=== PATIENT | female | born 1950 | race Caucasian/White ===

== ENCOUNTER 2022-09-13 16:57 | Emergency (ER) | payer MEDICARE, SELFPAY ==
[2022-09-13 16:59] VITALS: BP 149/68; PULSE 77; RESP 20; TEMP 36.4; O2SAT 96
--- NOTE | 2022-09-13 20:06 | ED.BACK ---
HPI - Back Pain/Injury General Chief Complaint: Extremity Problem,Nontraumatic Stated Complaint: hip pain right Time Seen by Provider: 09/13/22 19:46 Source: patient Mode of arrival: ambulatory Limitations: no limitations History of Present Illness HPI Narrative: 72-year-old female with history of lumbar surgery presents today with complaints of right lower back pain radiating down the right leg that started yesterday. Patient has seen chiropractor and an RETAIL ASSISTANT STORE MANAGER yesterday for these concerns. RETAIL ASSISTANT STORE MANAGER sent her home with Flexeril and ibuprofen 600 mg. Patient has only taken 2 doses since yesterday. Patient states she has done a lot of sitting and laying around due to the pain today. Movement aggravates the pain and patient has really found no alleviating factors. Patient denies any urinary incontinence, saddle paresthesia, bowel incontinence, leg weakness, fevers. Related Data Allergies Allergy/AdvReac Type Severity Reaction Status Date / Time acetaminophen Allergy Unknown Verified 09/13/22 19:44 [From Darvocet-N] propoxyphene Allergy Unknown Verified 09/13/22 19:44 [From Darvocet-N] ALL MYCINS Allergy Swelling Uncoded 09/13/22 19:44 Review of Systems Review of Systems: CONSTITUTIONAL: Denies fever, chills, or sweats. EYES: Denies visual changes, redness, or discharge. CARDIOVASCULAR: Denies chest pain, palpitations, or edema. RESPIRATORY: Denies cough or dyspnea. GENITOURINARY: Denies dysuria or hematuria. SKIN: Denies rash or itching. MUSCULOSKELETAL: Low back pain radiating down right leg to foot. Denies joint pain, or myalgia. NEUROLOGIC: Denies headache, numbness, dizziness, or weakness. PSYCHIATRIC: Denies anxiety or depression. [facility] Surgical History Surgical History (Updated 09/13/22 @ 20:27 by Debo Zhang APRN) History of lumbar surgery Exam Narrative: GENERAL: Well-appearing, well-nourished, and in no acute distress. HEAD: Normocephalic, atraumatic. EYES: PERRLA and EOMI. CHEST: Clear to auscultation. No respiratory distress. No wheezes rales or rhonchi HEART: Regular rate and rhythm. No murmur heard. Normal peripheral pulses. ABDOMEN: Soft, nontender, nondistended, normal active bowel sounds. BACK: No spinal process tenderness. Tenderness to right buttock with palpation. Patient unable to tolerate laying flat unable to do straight leg raise. EXTREMITIES: Normal range of motion. No edema. SKIN: Warm, dry, no rash. NEURO: No focal deficits. Alert and oriented x3. PSYCH: Normal mood and affect. Course Vital Signs Vital signs: Vital Signs Temperature 97.6 F 09/13/22 16:59 Pulse Rate 77 09/13/22 16:59 Respiratory Rate 20 09/13/22 16:59 Blood Pressure 149/68 H 09/13/22 16:59 Pulse Oximetry 96 09/13/22 16:59 Oxygen Delivery Room Air 09/13/22 16:59 Temperature 97.6 F 09/13/22 16:59 Pulse Rate 77 09/13/22 16:59 Respiratory Rate 20 09/13/22 16:59 Blood Pressure 149/68 H 09/13/22 16:59 Pulse Oximetry 96 09/13/22 16:59 Oxygen Delivery Room Air 09/13/22 16:59 MDM - Back Pain/Injury MDM Narrative Medical decision making narrative: Patient's pain is positional in nature and localized to back without signs of cord compression or cauda equina based on neurological exam, skeletal exam and history. No fever or other significant factors to suggest osteomyelitis or spinal epidural abscess. No symptoms or signs to suggest pain is referred from abdominal or / cardiopulmonary sources. No pulsatile masses noted on exam. Patient ambulates with steady gait and is stable for outpatient management given case findings. Differential Diagnosis Differential diagnosis: Likely lumbar radiculopathy, sciatica and strain of lumbar region Discharge Plan Discharge Clinical Impression: Lumbar radiculopathy Patient Disposition: Home, Self-Care Condition: Stable Instructions: Antibiotic Form, Lumbar Radiculopathy (ED), Lower Back Exercises (ED) Additional Inst
[2022-09-13] MEDS: HYDROcodone/acetaminophen (*CRX) 5-325 MG TABLET 1 TAB PO (20:27)
[2022-09-13 20:41] VITALS: BP 147/73; PULSE 86; RESP 16; O2SAT 96
[2022-09-13] MEDS: LIDOCAINE 5% PATCH 1 PATCH TRANSDERM (20:42)
== END 2022-09-13 20:52 | disposition home or self-care (01) ==
PROVIDERS: Emergency Provider Nurse Practitioner Family; PCP Family Medicine
DX: M54.16 Radiculopathy, lumbar region (principal)
CPT/HCPCS: 99283; A9270

== ENCOUNTER → 2022-10-23 11:17 | Outpatient (CLI) | payer MEDICARE, SELFPAY ==
--- NOTE | ~2022-10-23 | MR_ITS ---
EXAMINATION: MR lumbar spine wo con DATE: 10/23/2022 11:49 INDICATION: Lumbar radiculopathy TECHNIQUE: Magnetic resonance imaging (MRI) of the lumbar spine was performed without intravenous con trast. Sequences included sagittal T2-weighted FSE, sagittal T2-weighted FS FSE, sagittal T1-weighted FSE, and axial T2-weighted FSE. COMPARISON: None FINDINGS: 8 degree levocurvature centered at L1-L2. 2 mm retrolisthesis L4 on L5 and one-2 mm retrolisthesis L5 on S1. Vertebral body heights are normal. T1 hyperintense hemangioma at L2. Marrow signal is otherwi se normal. Mild right-sided disc height loss at L1-L2. Additional more diffuse mild disc height loss at L4-L5 with annular fissure. The conus medullaris terminates at T12. There is normal signal in the caudal spinal cord. Paravertebral soft tissues are unremarkable. The following disc levels are speci fically discussed: T11-T12: The disc does not extend beyond the endplate margin. There is mild right and moderate left f acet joint osteoarthritis. There is no neural foraminal stenosis. There is no central canal stenosis. T12-L1: The disc does not extend beyond the endplate margin. There is mild left and moderate right fa cet joint osteoarthritis. There is mild right neural foraminal stenosis. There is no central canal st enosis. L1-L2: Disc is mildly bulging. There is mild right and moderate left facet joint osteoarthritis. Ther e is mild bilateral neural foraminal stenosis. There is mild central canal stenosis. L2-L3: Disc protrusions at the bilateral foraminal zones, mild on the left and minimal on the right. There is hypertrophy of the ligamentum flavum. There is mild to moderate right and moderate left fac et joint osteoarthritis. There is mild bilateral, left greater than right neural foraminal stenosis. There is minimal central canal stenosis. L3-L4: Mild bilateral foraminal zone disc protrusions. There is hypertrophy of the ligamentum flavum. There is moderate to severe right and mild left facet joint osteoarthritis. There is mild bilateral neural foraminal stenosis. There is mild central canal stenosis. L4-L5: Disc is mildly bulging with superimposed annular fissure and small central disc protrusion. Th ere is hypertrophy of the ligamentum flavum. There is moderate bilateral facet joint osteoarthritis. There is mild to moderate bilateral neural foraminal stenosis. There is mild to moderate central david l stenosis along with narrowing of the left and right lateral recesses. L5-S1: Disc is minimally bulging with superimposed right foraminal zone disc protrusion There is mild bilateral facet joint osteoarthritis. There is mild bilateral, right greater than left neural forami nal stenosis. The thecal sac terminates at the level of the disc space where the fat surrounding the nerve roots at this level. No stenosis of the surrounding central canal. IMPRESSION: 1. A degree upper lumbar levocurvature with mild lumbar spondylosis. Reviewed, dictated and finalized at location B. CHECKER
== END ==
PROVIDERS: PCP Family Medicine
DX: M47.26 Other spondylosis with radiculopathy, lumbar region (principal)
CPT/HCPCS: 72148

== ENCOUNTER 2023-01-15 14:00 | Outpatient (CLI) | payer MEDICARE, SELFPAY ==
--- NOTE | ~2023-01-15 | CT_ITS ---
EXAMINATION: CT diagnostic chest wo con DATE: 01/15/2023 15:41 INDICATION: Left lung nodules seen on outside examination. TECHNIQUE: Computed tomography (CT) of the chest was performed without intravenous contrast. The dose -length product was 112.12 mGy-cm. Automated exposure control and iterative reconstruction technique were employed. COMPARISON: None FINDINGS: No significant pleural or pericardial effusion. Heart size is normal. There is atherosclero sis of the aorta and coronary arteries. No thoracic lymphadenopathy. There is a 3 mm left upper lobe nodule, image 38. No endobronchial lesions. There is a 4 mm right upper lobe nodule at the pleural zhang rface posteriorly, image 22. There is a 3 mm fissural nodule on the right, image 58. There are densel y calcified nodules in the left lower lobe, consistent with chronic granulomatous disease. There is l ower lobe atelectasis/scarring. No pneumothorax. IMPRESSION: 1. Bilateral pulmonary nodules measuring 4 mm or less, likely benign. Follow-up low dose CT chest in 12 months recommended. Reviewed, dictated and finalized at location A.
== END 2023-01-15 14:01 | disposition home or self-care (01) ==
LOC: ANHIMG 14:01
PROVIDERS: PCP Family Medicine; Visit Provider Nurse Practitioner Family
DX: R91.8 Other nonspecific abnormal finding of lung field (principal)
CPT/HCPCS: 71250

== ENCOUNTER → 2023-03-12 09:19 | Outpatient (CLI) | payer MEDICARE, SELFPAY ==
--- NOTE | ~2023-03-12 | XR_ITS ---
EXAMINATION: XR knee LT 3V DATE: 03/12/2023 10:18 INDICATION: Left knee pain TECHNIQUE: Three views of the left knee were obtained. COMPARISON: None. FINDINGS: Alignment is normal. No fracture or osteochondral lesion. There is mild tricompartmental os teoarthritis characterized by tiny marginal osteophytes. No joint effusion/synovitis. Soft tissues a re unremarkable. IMPRESSION: 1. No acute osseous abnormality. Reviewed, dictated and finalized at location A.
== END ==
PROVIDERS: PCP Pain Medicine Pain Medicine; Visit Provider Pain Medicine Pain Medicine
DX: M25.562 Pain in left knee (principal)
CPT/HCPCS: 73562

== ENCOUNTER 2023-10-30 08:35 | Outpatient (CLI) | payer MEDICARE, SELFPAY ==
--- NOTE | 2023-11-12 12:48 | WPDHOMESLEEP ---
Sleep Study - Home Unattended Date of Study: 10/30/23 Ordering Provider: Naren Borja MD Interpreting Provider: Katie Onofre DO Home Sleep Study Type: Watch PAT Height: 1.63 m Weight: 77.111 kg Body Mass Index: 29.2 Neck Circumference (inches): 13.5 Crowder: 6 Reason for Sleep Study Difficulty sleeping Sleep History The patient is a 73-year-old female with anxiety, arthritis, depression, diabetes and history of tobacco use that had a sleep study her primary care for evaluation of sleep apnea. The patient's sleep intake forms were not available for review. [facility] Past Medical History Medical History Acanthosis nigricans due to type 2 diabetes mellitus Anemia Anxiety Arthritis BMI 29.0-29.9,adult BMI 31.0-31.9,adult BMI greater than 30 Depression Overweight with body mass index (BMI) of 28 to 28.9 in adult Sleep apnea, unspecified Thyroid disorder Surgical History Surgical History History of lumbar surgery History of tonsillectomy and adenoidectomy Hx laparoscopic cholecystectomy Family History Family History Father Acute myocardial infarction AAA (abdominal aortic aneurysm) Amputation of leg Mother Hypertension Cerebrovascular accident Sibling Brain bleed Sibling Amputation of leg Deep vein blood clot of left lower extremity Diabetes mellitus Hypertension Social History Social History Years smoked: 30 Smoking status: Former smoker Tobacco type: cigarettes Second hand tobacco smoke exposure: Yes Alcohol intake: current Substance use: never Substance use type: does not use Lack of Transportation: No Lack of Food: Never True Current Housing: I Have Housing Concerned About Future Housing: No Difficulty Paying Gas/Electric Bills: No Difficulty Paying for Meds: No Currently Unemployed: No Education: Associate Degree Difficulty w/ Childcare or Family Care: No Living arrangements: alone Occupation/Education: retired 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 [employer] Gender identity (if verbalized by the patient): Female Medications Home Medications Medication Instructions Recorded Confirmed Type atorvastatin 20 mg tablet 20 mg PO QHS 01/10/23 01/25/24 History citalopram 40 mg tablet 20 mg PO DAILY 10/10/22 10/25/23 History gabapentin 300 mg capsule 300 mg PO QHS 10/10/22 10/25/23 History levothyroxine 100 mcg capsule 100 mcg PO DAILY 10/10/22 10/25/23 History pioglitazone 30 mg tablet 30 mg PO DAILY #90 tabs 07/30/23 10/25/23 Rx metformin 1,000 mg tablet 1,000 mg PO BID diabetes #180 tabs 10/09/23 10/25/23 Rx clobetasol 0.05 % topical ointment See Rx Instructions .Route 10/25/23 10/25/23 Rx .COMPLEX 3 weeks #30 grams vibegron 75 mg tablet (Gemtesa) 75 mg PO DAILY 10/25/23 10/25/23 History glimepiride 4 mg tablet 4 mg PO QAM #90 tabs 11/03/23 Rx Sleep Procedure The sleep study was completed using ConvertMediaT a technically adequate device with seven channels: peripheral arterial tone, actigraphy, body position, snore, respiratory movement, pulse oximetry, sleep staging, and heart rate. Prior to using the device, the patient received verbal and written instructions for its application and was provided with the help desk phone number for additional telephonic instruction with 24-hour availability of qualified personnel to answer questions. The study was scored using [facility] guidelines. Sleep Architecture The patient had a total recording time of 7 hours 55 minutes and a total sleep time of 7 hours 9 minutes. The sleep efficiency was 90.39%. The sleep latency was 6 minutes and the REM latency was 78 minutes. The patient had 7 awakenings. The patient spent 76.83% of total sleep ti
[2023-11-12 12:49] VITALS: BMI 29.2
== END 2023-10-31 07:30 | disposition home or self-care (01) ==
LOC: ANHCSM 08:36
PROVIDERS: PCP Family Medicine; Visit Provider Family Medicine
DX: G47.30 Sleep apnea, unspecified (principal); G47.33 Obstructive sleep apnea (adult) (pediatric)
CPT/HCPCS: 95800

== ENCOUNTER 2024-01-02 12:58 | Outpatient (CLI) | payer MEDICARE, SELFPAY ==
--- NOTE | 2024-01-02 13:05 | ECG_ITS ---
Measurements Intervals [place] Rate: 75 P: 86 MI: 175 QRS: 71 QRSD: 75 T: 42 QT: 365 QTc: 409 Interpretive Statements SINUS RHYTHM BASELINE ARTIFACT NONSPECIFIC ST ABNORMALITY BORDERLINE ECG NO PREVIOUS ECG AVAILABLE FOR COMPARISON Electronically Signed On 01-02-2024 14:52:29 CDT by Danielito Cardoso M.D.
== END 2024-01-02 12:59 | disposition home or self-care (01) ==
LOC: ANHCARD 13:02
PROVIDERS: PCP Family Medicine; Visit Provider Nurse Practitioner Family
DX: Z01.818 Encounter for other preprocedural examination (principal); R94.31 Abnormal electrocardiogram [ECG] [EKG]
CPT/HCPCS: 93005

== ENCOUNTER 2025-01-16 14:43 | Outpatient (CLI) | payer MEDICARE, SELFPAY ==
--- NOTE | ~2025-01-16 | MR_ITS ---
EXAMINATION: MR brain/brain stem wo/w con DATE: 01/16/2025 15:25 INDICATION: Abnormal findings on diagnostic imaging of the skull with prior intracranial hemorrhage p ost fall in July 2024. Difficulty seeing dimensions. TECHNIQUE: Magnetic resonance imaging (MRI) of the brain and brainstem was performed without and with 14 mL Multihance intravenous contrast. Sequences included sagittal and axial T1-weighted SE, axial d iffusion-weighted FS SE, axial T2*-weighted GRE, axial T2-weighted FLAIR, and axial T2-weighted FSE. Postcontrast axial and coronal T1-weighted SE was obtained. Apparent diffusion coefficient (ADC) maps were created. COMPARISON: None. FINDINGS: There are no areas of restricted diffusion to suggest acute infarction. No intracranial hemorrhage or abnormal intracranial mass lesion. There are scattered areas of nonspecific increased T2-weighted si gnal intensity in the patrica and in the cerebral white matter which is within normal limits for age and likely sequela of chronic small vessel ischemic disease.. There are no intraparenchymal signal abnor malities seen on the other pulse sequences. The ventricles are symmetric and normal in size. There ar e no abnormal extra-axial fluid collections. Flow voids are seen in the cerebral arteries on the T2-w eighted sequences consistent with their expected patency. Changes of bilateral intraocular lens repla cement. There is decreased T2 and increased T1 signal centrally within the left globe suggesting sili cone oil for treatment of retinal detachment. Soft tissues are unremarkable. There are no areas of ab normal enhancement on the post contrast images. IMPRESSION: 1. Normal aging brain with scattered white matter and pontine white matter T2 hyperintensity consiste nt with chronic small vessel ischemic disease. No acute intracranial process. 2. Postoperative change at the bilateral orbits with likely bilateral intraocular lens replacements a nd silicone oil within the left globe likely for treatment of retinal detachment. Reviewed, dictated and finalized at location A. IMPRESSION: 1. Normal aging brain with scattered white matter and pontine white matter T2 h yperintensity consistent with chronic small vessel ischemic disease. No acute i ntracranial process. 2. Postoperative change at the bilateral orbits with likely bilateral intraocul ar lens replacements and silicone oil within the left globe likely for treatmen t of retinal detachment.
== END 2025-01-16 14:44 | disposition home or self-care (01) ==
LOC: MICIMG 14:47
PROVIDERS: PCP Family Medicine
DX: R93.0 Abnormal findings on diagnostic imaging of skull and head, not elsewhere classified (principal); R29.6 Repeated falls; R42 Dizziness and giddiness
CPT/HCPCS: 70553; A9577

== ENCOUNTER 2025-04-30 09:38 | Outpatient (CLI) | payer MEDICARE, SELFPAY ==
--- NOTE | ~2025-04-30 | DEXA_ITS ---
Bone Density Report Name: KATIE CASAS Age: 74 Sex: Female Ethnicity: White Date of : 1950 Indication: postmenopausal; screening for osteoporosis; prior fracture; Referring Provider: FELICE URIBE Study: Bone densitometry was performed. Exam Date: April 30, 2025 Accession number: [id number] Bone Density: Region BMD T-score Z-score Classification AP Spine(L1-L4) 1.075 0.3 2.6 Normal Femoral Neck (Left) 0.756 -0.8 1.2 Normal Total Hip (Left) 0.841 -0.8 0.9 Normal Femoral Neck (Right) 0.825 -0.2 1.9 Normal Total Hip (Right) 0.922 -0.2 1.6 Normal Total Hip Mean 0.882 -0.5 1.3 Normal World Health Organization criteria for BMD impression classify patients as: Normal (T-score at or above -1.0), Osteopenia (T-score between -1.0 and -2.5), or Osteoporosis (T-score at or below -2.5). 10-year Fracture Risk: FRAX not reported because: All T-scores for Spine Total, Hip Total, Femoral Neck at or above -1.0 Prior hip or vertebral fracture Clinical Information Provided by Patient: Have had a previous hip or vertebral fracture Has had a low trauma fracture Has used the following medications: HRT (i.e. estrogen/hormone therapy), Vitamin D, Calcium Patient maximum height was 64 Menopause Age: 58 No regular weight bearing exercise Onset of menses at age 14 Number of children 2 Impression: The patient has normal bone mass. The patient has risk factors, including: previous fracture. Discussion: INCREASED RISK OF FRACTURE DUE TO HISTORY OF FRACTURE. The patient's previous fracture puts the patient at high risk of a future fracture. In untreated patients, the risk of osteoporotic fracture increases approximately two-fold for each 1.0 SD decrease in T-score. Low bone density is not the only risk factor for fracture; also consider factors such as patient's age, frailty or poor health, risk of falling, risk of injury, previous osteoporotic fracture, family history of osteoporosis, cigarette smoking, low body weight, etc. Not everyone with a low trauma fracture has osteoporosis; osteomalacia and other metabolic bone disorders should also be considered. Patients who have osteoporosis should be evaluated for specific diseases and conditions (secondary causes) that may cause or contribute to bone loss and fracture risk. National Osteoporosis Foundation (NOF) recommends pharmacologic intervention for patients with a prior hip or vertebral fracture regardless of BMD T-score. The patient should follow a healthful lifestyle (good nutrition with adequate calcium and vitamin D, and appropriate weight-bearing exercise). Follow-Up: Consider a repeat BMD and Vertebral Fracture Assessment (VFA) exam in 2 years or sooner if medically necessary, to reassess this patient's status. Reported by: AMBROSIO on 04/30/2025 10:01:00 AM. Reviewed, dictated and finalized at location A.
== END 2025-04-30 09:39 | disposition home or self-care (01) ==
LOC: MICIMG 09:38
PROVIDERS: PCP Family Medicine
DX: Z78.0 Asymptomatic menopausal state (principal); S02.91XA Unspecified fracture of skull, initial encounter for closed fracture; X58.XXXA Exposure to other specified factors, initial encounter
CPT/HCPCS: 77080

== ENCOUNTER 2025-07-06 19:21 | Emergency (ER) | payer MEDICARE, SELFPAY ==
--- NOTE | ~2025-07-06 | XR_ITS ---
EXAMINATION: XR wrist LT min 3V DATE: 07/06/2025 20:25 INDICATION: Left wrist injury post fall TECHNIQUE: Posteroanterior, ulnar deviation, oblique, and lateral views of the left wrist were obtained. COMPARISON: none FINDINGS: Bone alignment is normal. No acute fracture. Corticated ossicle at the tip of the ulnar styloid process which could represent either a chronic nonunited avulsion fracture fragment or heterotopic ossification related to chronic soft tissue injury. Mild osteoarthritis at the wrist, distal radioulnar, triscaphe and first carpal metacarpal joints. Mild soft tissue swelling at the dorsum of the carpus. IMPRESSION: 1. 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 No acute osseous abnormality. Reviewed, dictated and finalized at location A. IMPRESSION: 1. 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 No acute oss eous abnormality.
--- OUTSIDE RECORDS SUMMARY | 2025-07-06 19:23 | XMS_ITS | Encounter Summary ---
Author Organization [facility] Address [address] [place] [address] Care Team Providers Care Dispute Coordinator Name Role Phone Naren Borja MD Primary Care Provider [phone] John Alamo MD Unavailable [phone] Encounter Details Date Type Department Care Team (Late st Contact Info) Description 07/24/2024 Ophth Exam [facility] - Ophthalmology [address] [place] [id number] Trev Rogel MD [address] [place] [address] Social History Tobacco Use Types Packs/Day Years Used Date Smoking Tobacco: Never Smokeless Tobacco: Never Alcohol Use Standard Drinks/Week Comments Yes 0 (1 standard drink = 0.6 oz pur e alcohol) occ AUDIT-C Answer Date Recorded Q1: How often do you have a drink containing alcohol? Never 07/27/2024 Q2: How many drinks containi ng alcohol do you have on a typical day when you are drinking? Patient does not drink Q3: How often do you have si x or more drinks on one occasion? Never 07/27/2024 Overall Financial Resource Strain (CARDIA) Answe r Date Recorded How hard is it for you to pa y for the very basics like food, housing, medical care, and heating? Somewhat hard 07/27/2024 [facility] [place] [facility] - Occupational Stress Questionnaire Answer Date Recorded Do you feel stress - tense, restless, nervous, or anxious, or unable to sleep at night because your mind is troubled all the time - these days? To some extent 07/27/2024 Hunger Vital Sign Answer Date Recorded Within the past 12 months, y ou worried that your food would run out before you got the money to buy more. Never true 07/27/20 24 Within the past 12 months, t he food you bought just didn't last and you didn't have money to get more. Never true 07/27/2024 PRAPARE - Transportation Answer Date Re corded In the past 12 months, has l ack of transportation kept you from medical appointments or from getting medications? No 07/02 In the past 12 months, has l ack of transportation kept you from meetings, work, or from getting things needed for daily living? No 07/27/2024 Housing Stability Vital Sign Answer Adam e Recorded In the last 12 months, was t here a time when you were not able to pay the mortgage or rent on time? No 07/27/2024 In the past 12 months, how m any times have you moved where you were living? 0 07/27/2024 At any time in the past 12 m [facility], were you homeless or living in a [place] facility (including now)? No 07/27/2024 Comments Unknown Sex and Gender Information Value Date Recorded Sex Assigned at Female 09/05/2024 6:10 PM EMERGENCY SERVICE RESTORER Legal Sex Female 4:00 PM CDT Gender Identity Female 09/05/2024 6:10 PM EMERGENCY SERVICE RESTORER Sexual Orientation Straight 09/05/2024 6: 10 PM EMERGENCY SERVICE RESTORER documented as of this encounter Functional Status * Question Answer Date of Assessment Author Q1: How often do you have a drink containing alcohol? Never 07/27/2024 2:06 PM Alexis Turk RN Q2: How many drinks containing alcohol do you have on a typical day when you are drinking? Patient does not drink 07/27/2024 2:06 PM Bernie Turk RN Q3: How often do you have six or more drinks on one occasion? Never 07/27/2024 2:06 PM Alexis Turk RN * Audit-C Score Answer Date of Assessment Author 0 07/27/2024 2:06 PM Bernie Turk RN documented as of this encounter Plan of Treatment Not on file documented as of this encounter Visit Diagnoses Not on filedocumented in this encounter Care Teams Dispute Coordinator Relationship Specialty Start Date End Date Naren Borja MD [address] [place] [id number] PCP - General Family Medicine 07/24/24 [place] [id number] [phone] Ophthalmology 08/26/24 documented as of this encounter
--- OUTSIDE RECORDS SUMMARY | 2025-07-06 19:23 | XMS_ITS | Clinical Summary ---
Author Organization [facility] vitalclip Address [address] [place] [address] Care Team Providers Care Java Manager Name Role Phone Naren Borja MD Primary Care Provider [phone] John Alamo MD Unavailable Source Comments [facility],non-owned Affiliates and Associated Physician Practices is amultiple site organization consisting of ambulatory clinics and hospital sitesin [place], [place], [place] and [place]. This disclosure is being madepursuant to the Care Everywhere program and may not contain all information available regarding this patient. Last updated 18.[facility]clip Allergies Active Allergy Reactions Criticality Noted Date Comments Aminoglycosides Angioedema High 07/24/2024 PUFFY AND HIGH TEMP Propoxyphene N-Apap Nausea and/or Vomiting 07/02 Oxytetracycline Swelling 06/12/2023 Medications * Be aware that medications may not be up to date on this document. Alwaysverify current medications with the patient. metFORMIN (Glucophage) 1000 MG tablet Take 1 (one) tablet by mouth 2 times daily with morning and evening meal Active Semaglutide (OZEMPIC, 0.25 OR 0.5 MG/DOSE, SC) Inject 0.5 mg subcutaneously every 7 days Active atorvastatin (Lipitor) 20 MG tablet Take 1 (one) tablet by mouth at bedtime 4 Active levothyroxine (Synthroid) 100 MCG tablet Take 1 (one) tablet by mouth once daily 4 Active vitamin D3 (Cholecalcifer ol) 10 MCG (400 UNIT) tablet Take 1 (one) tablet by mouth once daily 4 Active gabapentin (Neurontin) 300 MG capsule Take 1 (one) capsule by mouth at bedtime for 30 days 30 capsule 4 Active timolol maleate (Timoptic) 0.5 % ophthalmic solution Instill 1 (one) drop into both eyes 2 times daily 10 mL 2 4 Active glimepiride (Amaryl) 4 MG tablet Take 1 (one) tablet by mouth daily with breakfast 5 Active Active Problems Problem Noted Date Diagnosed Date Hypotropia of left eye 01/18/2025 Exotropia 01/18/2025 Diplopia 08/26/2024 Restrictive strabismus 08/26/2024 Fracture of medial orbital wall, right side, seq uela 07/24/2024 Closed fracture of right orbital floor Closed fracture nasal bone 07/24/2024 Closed fracture of right side of maxilla 024 Schmorl's nodes of thoracic region 07/24/2024 Traumatic periorbital ecchymosis of right eye Closed fracture of nasal bone, initial encounter 07/24/2024 Fall, initial encounter 07/24/2024 Vision loss, bilateral 07/24/2024 Orbital deformity due to trauma, right 4 Closed fracture of orbital wall, initial encount er 07/24/2024 Resolved Problems Problem Noted Date Diagnosed Date Resolved Date Compression fracture of T8 vertebra 07/24/2024 07/25/2024 Family History Medical History Relation Name Comments Cancer - Colon Brother Hemangioma Brother Cancer - Colon Father CVA Mother Cancer - Breast Mother Diabetes; unknown type Mother Relation Name Status Comments Brother Father Mother Social History Tobacco Use Types Packs/Day Years Used Date Smoking Tobacco: Former Cigarettes 1 31.8 S tarted: 1993 Smokeless Tobacco: Former Tobacco Cessation:Counseling Given: Not Answered Alcohol Use Standard Drinks/Week Comments Yes 1 (1 standard drink = 0.6 oz pur e alcohol) occ AUDIT-C Answer Date Recorded Q1: How often do you have a drink containing alcohol? Never 09/25/2024 Q2: How many drinks containi ng alcohol do you have on a typical day when you are drinking? Patient does not drink Q3: How often do you have si x or more drinks on one occasion? Never 09/25/2024 Overall Financial Resource Strain (CARDIA) Answe r Date Recorded How hard is it for you to pa y for the very basics like food, housing, medical care, and heating? Somewhat hard 07/27/2024 PHQ-2 Answer Date Recorded Patient Health Questionnaire-2 Score 1 01/26/2025 [facility] - Occupational Stress Questionnaire Answer Date [...] any time in the past [address] [facility], were you homeless or living in a long-term (including now)? No 07/27/2024 Comments Unknown Sex and Gender Information Value Date Recorded Sex Assigned at Female 09/05/2024 6:10 PM UNDERWATER HUNTER Legal Sex Female 4:00 PM CDT Gender Identity Female 09/05/2024 6:10 PM UNDERWATER HUNTER Sexual Orientation Straight 09/05/2024 6: 10 PM UNDERWATER HUNTER Last Filed Vital Signs Vital Sign Reading Time Taken Comments Blood Pressure 137/82 01/30/2025 8:49 AM CDT Pulse 57 01/30/2025 8:49 AM CDT Temperature 36.9 C (98.4 F) 09/25/2024 6:20 PM UNDERWATER HUNTER Respiratory Rate 14 09/25/2024 6:50 PM UNDERWATER HUNTER Oxygen Saturation 97% 01/30/2025 8:49 AM CDT Inhaled Oxygen Concentration - - Weight 73.9 kg (163 lb) 01/30/2025 8:49 AM CDT Height 162.6 cm (5' 4) 09/25/2024 12:06 PM UNDERWATER HUNTER Body Mass Index 27.98 09/25/2024 12:06 PM UNDERWATER HUNTER Plan of Treatment Health Maintenance Due Date Last Done Comments BONE DENSITY TESTING 1950 COLOGUARD (AGES 45-75) - COL ON CA SCREENING 1950 COLON MONITORING 1950 COLONOSCOPY - COLON CA SCREENING [address] CT COLONOGRAPHY - COLON CA SCREENING 1950 Colorectal Cancer Screening 1950 FIT - COLON CA SCREENING 1950 FLEX SIG - COLON CA SCREENING 1950 MEDICARE AWV 12 MONTHS 1950 HEPATITIS C SCREENING 06/18/1968 DTAP/TDAP/TD VACCINES (1 - Tdap) 1969 PNEUMOCOCCAL VACCINE 50+ (1 of 2 - PCV) 1969 ZOSTER VACCINE (1 of 2) 2000 COVID-19 VACCINE ( - 2023-2 5 season) 2025 INFLUENZA VACCINE (#1) 2025 Respiratory Syncytial Virus (RSV) Vaccine Pt: or over 60 yrs (1 - 1-dose 75+ series) 2025 MAMMOGRAM 06/26/2026 06/26/2024, 06/26/2024 DEPRESSION SCREENING Completed 01/26/2025 HEPATITIS B VACCINE Aged Out No longe r eligible based on patient's age to complete this topic HIB VACCINE Aged Out No longer eligi ble based on patient's age to complete this topic HPV VACCINE Aged Out No longer eligi ble based on patient's age to complete this topic MENINGOCOCCAL (Group B) VACCINE SHARED DECISION-MAKING Aged Out No longer eligible based on patient's age to complete this topic MENINGOCOCCAL GROUPS A/C/Y/W VACCINE Aged Out No longer eligible b ased on patient's age to complete this topic Medical Devices Implanted Type Area Statistician Device Identifier Shelf Expiration Date Model / Serial / Lot Plate Preform Contr Edg Seg Orbt Flr Rt Implanted:Qty: 1 on 09/25/2024 by Humera Gong MD at [facility] Right: [employer] Maxillofacial 812 / / Screw 1.55mm 2.65mm 4mm Slf Abe Cooper Implanted:Qty: 2 on 09/25/2024 by Humera Gong MD at [facility] Right: [employer] Maxillofacial 224 .01 / / Insurance MEDICARE [facility] Advance Directives * Full Code (Latest Code Status on File) Date Activated Date Inactivated Comments 07/28/2024 4:33 PM 08/05/2024 12:05 PM * Full Code Date Activated Date Inactivated Comments 07/24/2024 11:17 PM 07/28/2024 4:27 PM Care Teams Java Manager Relationship Specialty Start Date End Date Naren Broja MD [address] [place] [id number] PCP - General Family Medicine 07/24/24 [place] [id number] [phone] Ophthalmology 08/26/24
--- OUTSIDE RECORDS SUMMARY | 2025-07-06 19:23 | XMS_ITS | CCD ---
Author Name Interface, [id number] [facility] Address [address] [place] [address] [facility]ly [facility] ecialistsCARYL Address [address] [place] [address] Reason for Visit Social History Date Name Value 10/14/2018 Sex Female
--- OUTSIDE RECORDS SUMMARY | 2025-07-06 19:23 | XMS_ITS | Encounter Summary ---
Author Organization [facility] Address [address] [place] [address] Care Team Providers Care Cab Starter Name Role Phone Naren Borja MD Primary Care Provider [phone] John Alamo MD Unavailable [phone] Encounter Details Date Type Department Care Team (Late st Contact Info) Description 07/25/2024 Ophth Exam [facility] - Ophthalmology [address] [place] [id number] Maria M Benitez MD [address] [place] [address] Social History Tobacco Use Types Packs/Day Years [...] medical care, and heating? Somewhat hard 07/27/2024 [facility] [facility] Occupat ional [facility] - Occupational Stress Questionnaire Answer Date Recorded [...] any time in the past 12 m [facility], were you homeless or living in a prison (including now)? No 07/27/2024 Comments Unknown Sex and Gender Information Value Date Recorded Sex Assigned at Female 09/05/2024 6:10 PM RN FIRST ASSIST Legal Sex Female 4:00 PM CDT Gender Identity Female 09/05/2024 6:10 PM RN FIRST ASSIST Sexual Orientation Straight 09/05/2024 6: 10 PM RN FIRST ASSIST documented as of this encounter Functional Status [...] on filedocumented in this encounter Care Teams Cab Starter Relationship Specialty Start Date End Date Naren Borja MD [address] [place] [phone] PCP - General Family Medicine 07/24/24 [place] [id number] [phone] Ophthalmology 08/26/24 documented as of this encounter
--- OUTSIDE RECORDS SUMMARY | 2025-07-06 19:23 | XMS_ITS | Clinical Summary ---
Author Organization [facility] Address [address] [place] [address] Care Team Providers Care Internet Marketing Manager Name Role Phone Naren Borja MD Primary Care Provider [phone] Allergies Active Allergy Reactions Criticality Noted Date Comments Propoxyphene Nausea and Vomiting 06/12/2023 Oxytetracycline Swelling 06/12/2023 Medications metFORMIN (GLUCOPHAGE) 1000 MG tablet Take 1 tablet (1,000 mg total) by mouth 2 (two) times daily with meals. Active glimepiride (AMARYL) 4 MG tablet Take 1 tablet (4 mg total) by mouth nightly. Active levothyroxine (SYNTHROID) 100 MCG tablet Take 1 tablet (100 mcg total) by mouth every morning. Active atorvastatin (LIPITOR) 20 MG tablet Take 1 tablet (20 mg total) by mouth nightly at bedtime. Active Krill Oil 500 MG Cap Take by mouth daily. Active vitamin B-12 (CYANOCOBALAMIN ) (CYANOCOBALAMIN ) 1000 mcg tablet Take 1 tablet (1,000 mcg total) by mouth daily. Active calcium-vitamin D (OSCAL) 250-3.125 MG-MCG tablet Take 1 tablet by mouth daily. Active citalopram (CELEXA) 10 MG tablet Take 1 tablet (10 mg total) by mouth daily. Active Multiple Vitamins-Minera ls (PRESERVISION AREDS 2 OR) Take 1 tablet by mouth 2 (two) times a day. Active gabapentin (NEURONTIN) 250 MG/5ML solution Take 6 mLs (300 mg total) by mouth 3 (three) times daily. Active Family History Medical History Relation Comments Heart Attack Father Cancer Mother colon and breast Cancer Sister 2 Relation Status Comments Brother Father Mother Sister 1 Alive Sister 2 Alive Social History Tobacco Use Types Packs/Day Years Used Date Smoking Tobacco: Former Cigarettes Q uit: 1993 Smokeless Tobacco: Never Tobacco Cessation:Counseling Given: Not Answered Alcohol Use Standard Drinks/Week Comments Yes 0 (1 standard drink = 0.6 oz pur e alcohol) occasional drink Comments No Sex and Gender Information Value Date Recorded Sex Assigned at Not on file Legal Sex Female 9:00 AM CDT Gender Identity Not on file Sexual Orientation Not on file Last Filed Vital Signs Vital Sign Reading Time Taken Comments Blood Pressure 158/68 06/14/2023 11:00 AM CDT Pulse 57 06/14/2023 11:00 AM CDT Temperature 36.1 C (97 F) 06/14/2023 11:00 AM CDT Respiratory Rate 16 06/14/2023 11:00 AM CDT Oxygen Saturation 100% 06/14/2023 11:00 AM CDT Inhaled Oxygen Concentration - - Weight 76.6 kg (168 lb 14 oz) 06/14/2023 8:28 AM CDT Height 162.6 cm (5' 4) 06/14/2023 8:28 AM CDT Body Mass Index 28.99 06/14/2023 8:28 AM CDT Plan of Treatment Health Maintenance Due Date Last Done Comments Colorectal Cancer Screening Colonoscopy (10 Years) 1950 Hepatitis C 1968 DTaP, Tdap and Td Vaccines ( 1 - Tdap) 1969 Pneumococcal Vaccine: 50+ Ye ars (1 of 1 - PCV) 2000 Zoster Vaccines (1 of 2) 2000 Annual Medicare Wellness Visit 2015 Dexa Scan (General) 2015 COVID-19 Vaccine (2 - 2024-2 6 season) 2025 07/20/2022 RSV Immunization or 60+ Years (1 - 1-dose 75+ series) 2025 Influenza Adult (#1) 2025 Meningococcal B Vaccine Aged Out No l onger eligible based on patient's age to complete this topic Meningococcal Vaccine Aged Out No sammie zoë eligible based on patient's age to complete this topic RSV Immunizations Under 20 Months Aged Out No longer eligible based on patient's age to complete this topic Insurance MEDICARE [facility] Care Teams Internet Marketing Manager Relationship Specialty Start Date End Date Naren Borja MD [address] [place], [place] [id number] PCP - General FAMILY PRACTICE 06/14/23
--- OUTSIDE RECORDS SUMMARY | 2025-07-06 19:23 | XMS_ITS | Clinical Summary ---
Author Organization [facility] Address [address] [place] [address] Care Team Providers Care Pinked Edge Sewing Machine Operator Name Role Phone Naren Borja Primary Care Provider [phone] Allergies Active Allergy Reactions Criticality Noted Date Comments Aminoglycosides Anaphylaxis High 07/24/2024 PUFFY AND HIGH TEMP Other Nausea And Vomiting 07/24/2024 Oxytetracycline Swelling 06/12/2023 Propoxyphene Nausea And Vomiting 06/12/2023 Medications metFORMIN (GLUCOPHAGE) 1000 MG tablet Take 1 tablet (1,000 mg total) by mouth 2 (two) times a day with Breakfast and Dinner. Active Semaglutide (OZEMPIC, 0.25 OR 0.5 MG/DOSE, SC) Inject 0.5 mg under the skin every 7 days. Active Multiple Vitamins-Minera ls (PRESERVISION AREDS PO) Active cholecalciferol (Vitamin D3) 10 MCG (400 UNIT) tablet Take 1 tablet (400 Units total) by mouth in the morning. Active amLODIPine (NORVASC) 10 MG tablet Take 1 tablet (10 mg total) by mouth in the morning. 30 tablet 4 Active atorvastatin (LIPITOR) 20 MG tablet Take 1 tablet (20 mg total) by mouth nightly. 4 Active brimonidine (ALPHAGAN) 0.2 % ophthalmic solution Administer 1 drop into the right eye 3 (three) times a day. 5 mL 4 Active citalopram (CeleXA) 40 MG tablet Take 1 tablet (40 mg total) by mouth in the morning. 4 Active cyclopentolate (CYCLOGYL) 1 % ophthalmic solution Administer 1 drop into the right eye in the morning and 1 drop before bedtime. 2 mL 4 Active dorzolamide (TRUSOPT) 2 % ophthalmic solution Administer 1 drop into the right eye 3 (three) times a day. 10 mL 4 Active gabapentin (NEURONTIN) 300 MG capsule Take 1 capsule (300 mg total) by mouth 3 (three) times a day. 4 Active levothyroxine (SYNTHROID) 100 MCG tablet Take 1 tablet (100 mcg total) by mouth Daily at 6am. 4 Active prednisoLONE acetate (PRED FORTE) 1 % ophthalmic suspension Administer 1 drop into the right eye in the morning and 1 drop at noon and 1 drop in the evening and 1 drop before bedtime. 5 mL 4 Active timolol (TIMOPTIC) 0.5 % ophthalmic solution Administer 1 drop into the right eye in the morning and 1 drop before bedtime. 5 mL 4 Active Active Problems Problem Noted Date Diagnosed Date Fall from ladder 07/28/2024 Social History Tobacco Use Types Packs/Day Years Used Date Smoking Tobacco: Never Smokeless Tobacco: Never Tobacco Cessation:Counseling Given: Not Answered Alcohol Use Standard Drinks/Week Comments Never 0 (1 standard drink = 0.6 oz pur e alcohol) [facility] Utilities Answer Date Recorded In the past 12 months has e electric, gas, oil, or water [employer] threatened to shut off services in your home? No 07/29/2024 Social Connection and Isolation Panel [NHANES] A nswer Date Recorded In a typical week, how many times do you talk on the phone with family, friends, or neighbors? Once a week 07/29/2024 How often do you get together with friends or re latives? Once a week 07/29/2024 How often do you attend holiness or sabianist serv ices? Never 07/29/2024 Active Member of Clubs or Organizations Not on f ile 07/29/2024 Attends Club or Organization Meetings Not on ganga e 07/29/2024 Are you , , di vorced, , never , or living with a partner? Never 07/29/2024 Overall Financial Resource Strain (CARDIA) Answe r Date Recorded How hard is it for you to pa y for the very basics like food, housing, medical care, and heating? Not very hard 07/29/2024 [facility] Occupational Stress Questionnaire Answer Date Recorded Do you feel stress - tense, restless, nervous, or anxious, or unable to sleep at night because your mind is troubled all the time - these days? Only a little 08/05/2024 Hunger Vital Sign Answer Date Recorded Within the past 12 months, y ou worried that your food would run out before you got the money to buy more. Never true 07/29/20 24 Within the past 12 months, t he food you bought just didn't last and you didn't have money to get more. Never true 07/29/2024 Housing Stability Vital Sign Answer Adam e Recorded In the last 12 months, was t here a time when you were not able to pay the mortgage or rent on time? No 07/29/2024 In the past 12 months, how m any times have you moved where you were living? 1 07/29/2024 At any time in the past [address] m [facility], were you homeless or living in a residential (including now)? No 07/29/2024 Domestic Abuse Assessment Answer Date R ecorded Do you feel safe in your relationships at home? Yes 07/28/2024 Physical Abuse Denies 07/28/2024 HRSN Domestic Abuse - Type of Abuse Not on file 07/28/2024 HRSN Domestic Abuse - Time Frame Not on file 07/28/2024 HRSN Domestic Abuse - Signs and Symptoms Not on file 07/28/2024 Verbal Abuse Denies 07/28/2024 HRSN Domestic Abuse - Reported To Not on file 07/28/2024 SDWV Transportation Source Answer Da te Recorded Has lack of transportation k ept you from medical appointments or from getting medications? No 08/04/2024 Has lack of transportation k ept you from meetings, work, or from getting things needed for daily living? No 08/04/2024 HRSN Depression PHQ-2 Answer Date Recor ded Feeling down, depressed, or hopeless 0 08/05/2024 Little interest or pleasure in doing things 0 08/05/2024 Comments Unknown Sex and Gender Information Value Date Recorded Sex Assigned at Not on file Legal Sex Female 1:29 PM EDT Gender Identity Not on file Sexual Orientation Not on file Last Filed Vital Signs Vital Sign Reading Time Taken Comments Blood Pressure 146/67 08/05/2024 7:32 AM GRANULIZING MACHINE OPERATOR Pulse 70 08/05/2024 7:32 AM GRANULIZING MACHINE OPERATOR Temperature 36.7 C (98 F) 08/05/2024 7:32 AM GRANULIZING MACHINE OPERATOR Respiratory Rate 16 08/05/2024 7:32 AM GRANULIZING MACHINE OPERATOR Oxygen Saturation 93% 08/05/2024 7:32 AM GRANULIZING MACHINE OPERATOR Inhaled Oxygen Concentration - - Weight 77.1 kg (170 lb) 07/28/2024 5:24 PM CDT Height 164.6 cm (5' 4.8) 07/28/2024 5:24 PM CDT Body Mass Index 28.46 07/28/2024 5:24 PM CDT Plan of Treatment Health Maintenance Due Date Last Done Comments CT Colonography 1950 Colonoscopy 1950 Colorectal Cancer Screening 1950 FIT-DNA (Cologuard) 1950 FIT 1950 FOBT 1950 Sigmoidoscopy 1950 Annual Visit Topic 1951 Hepatitis C Screening 1968 DTaP/Tdap/Td Vaccines (1 - Tdap) 1969 Pneumococcal Vaccine: 65+ Ye ars (1 of 2 - PCV) 2000 HIB Vaccines Aged Out No longer eligi ble based on patient's age to complete this topic HPV Vaccines Aged Out No longer eligi ble based on patient's age to complete this topic Hepatitis A Vaccines Aged Out No long er eligible based on patient's age to complete this topic Hepatitis B Vaccines Aged Out No long er eligible based on patient's age to complete this topic IPV Vaccines Aged Out No longer eligi ble based on patient's age to complete this topic Meningococcal Vaccine Aged Out No sammie zoë eligible based on patient's age to complete this topic Advance Directives * Full Resuscitation (Latest Code Status on File) Date Activated Date Inactivated Comments 07/28/2024 7:16 PM 08/05/2024 2:25 PM Question Answer Comments I have discussed this order with the patient or his/her surrogate and have received informed consent. Yes Care Teams Pinked Edge Sewing Machine Operator Relationship Specialty Start Date End Date Naren Borja [address] [place] [address] [facility] - General 07/29/24
[2025-07-06 19:59] VITALS: BP 131/59; PULSE 83; RESP 16; TEMP 36.5; O2SAT 99
--- NOTE | 2025-07-07 00:35 | ED.UPPEXIN ---
HPI - Extremity Injury (Upper) General Chief Complaint: Extremity Injury, Upper Stated Complaint: left wrist pain / fall / Time Seen by Provider: 07/07/25 00:05 Source: patient Mode of arrival: ambulatory Limitations: no limitations History of Present Illness HPI narrative: This is a 75 year old female that presents to the ER for left wrist pain. Reports she tripped and fell backwards. Caught herself with her left wrist. She did not hit her head or lose consciousness. Reports left wrist pain and swelling. Denies decreased range of motion or numbness. Related Data Home Medications ?Medication ?Instructions ?Recorded ?Confirmed ?Last Taken ?Type levothyroxine 100 mcg capsule 100 mcg PO DAILY 10/10/22 05/21/25 Unknown History brimonidine 0.2 %-timolol 0.5 % drp EACH EYE BID 04/23/24 05/21/25 Unknown History eye drops Allergies Allergy/AdvReac Type Severity Reaction Status Date / Time acetaminophen (From Allergy Unknown Verified 07/06/25 19:22 Darvocet-N) propoxyphene (From Allergy Unknown Verified 07/06/25 19:22 Darvocet-N) Macrolide Antibiotics AdvReac Intermediate Hives Verified 07/06/25 19:22 Review of Systems Review of Systems: All systems reviewed & are unremarkable except as noted in HPI and below PMFSH Past Medical History Medical History BMI 30.0-30.9,adult Preoperative testing Thyroid disorder Sleep apnea, unspecified At moderate risk for fall Screening for malignant neoplasm of breast Tinea corporis Urinary incontinence Acanthosis nigricans due to type 2 diabetes mellitus Depression Anxiety Arthritis Anemia Surgical History Surgical History Hx laparoscopic cholecystectomy History of tonsillectomy and adenoidectomy History of lumbar surgery Family History Family History Father Acute myocardial infarction AAA (abdominal aortic aneurysm) Amputation of leg Mother Hypertension Cerebrovascular accident Sibling Brain bleed Sibling Amputation of leg Deep vein blood clot of left lower extremity Diabetes mellitus Hypertension Social History Social History Years smoked: 30 Smoking status: Former smoker Tobacco type: cigarettes Second hand tobacco smoke exposure: Yes Alcohol intake: current Substance use: never Substance use type: does not use Do You Feel Safe in your Home?: Yes Lack of Transportation: No Lack of Food: Never True Current Housing: I Have Housing Concerned About Future Housing: No Difficulty Paying Gas/Electric Bills: No Difficulty Paying for Meds: No Currently Unemployed: No Education: Associate Degree Difficulty w/ Childcare or Family Care: No Living arrangements: alone Occupation/Education: retired 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 HEAD: Normocephalic, atraumatic. EYES: EOMI. EXTREMITIES: Normal range of motion. No edema or obvious deformity. Normal radial pulse. Normal sensation SKIN: Warm, dry, no rash. NEURO: No focal deficits. Alert and oriented x3. PSYCH: Normal mood and affect Course Vital Signs Vital signs: Vital Signs Temperature 97.7 F 07/06/25 19:59 Pulse Rate 83 07/06/25 19:59 Respiratory Rate 16 07/06/25 19:59 Blood Pressure 131/59 L 07/06/25 19:59 Pulse Oximetry 99 07/06/25 19:59 Oxygen Delivery Room Air 07/06/25 19:59 Temperature 97.7 F 07/06/25 19:59 Pulse Rate 83 07/06/25 19:59 Respiratory Rate 16 07/06/25 19:59 Blood Pressure 131/59 L 07/06/25 19:59 Pulse Oximetry 99 07/06/25 19:59 Oxygen Delivery Room Air 07/06/25 19:59 MDM - Extremity Injury (Upper) MDM Narrative Medical decision making narrative: Patient presents the emergency department for left wrist pain after a fall today. Patient is neurovascularly intact. Left wrist x-ray showing polyarticular osteoarthritis. No acute osseous abnormality. Patient updated on her workup and agrees with plan of care. She is to follow up with primary provider. She was given warnings to return to the ER Differential Diagnosis Differential diagnosis: Likely sprain and strain of wrist and fracture of wrist Imaging Data Radiologist's impression: ITS Impressions Wrist X-Ray 07/06/25 21:31 IMPRESSION: 1. 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 No acute osseous abnormality. Critical Care Time Critical Care Time Critical Care Time: No Discharge Plan Discharge Clinical Impression: Left wrist sprain Qualifiers: Encounter type: initial encounter Wrist sprain location: unspecified location Qualified Code(s): S63.502A - Unspecified sprain of left wrist, initial encounter Patient Disposition: Home Condition: Stable Instructions: Wrist Sprain (ED) Additional Instructions: Return to the ER if you experience fever, redness and swelling of your extremity, numbness or any other symptoms that are concerning to you Wear WALI wrap. No weight on the affected extremity. Ice and elevate extremity. Pain medication as needed and directed. Follow up with your doctor for further care. Patient Language: Taiwanese Prescriptions: No Action levothyroxine 100 mcg capsule 100 mcg PO DAILY brimonidine-timolol 0.2-0.5 % drops EACH EYE BID gabapentin 600 mg tablet extended release 24 hr 600 mg PO QPM Qty: 90 1RF semaglutide 1 mg/dose (4 mg/3 mL) pen injector 1 mg subcut WEEKLY Qty: 3 5RF metformin 500 mg tablet 500 mg PO DAILY Qty: 90 0RF atorvastatin 20 mg tablet See Rx Instructions .ROUTE .COMPLEX Qty: 90 0RF Dose Instruction: TAKE 1 TABLET BY MOUTH EVERYDAY AT BEDTIME Rx Instructions: TAKE 1 TABLET BY MOUTH EVERYDAY AT BEDTIME losartan 25 mg tablet 25 mg PO DAILY Qty: 90 1RF glimepiride 2 mg tablet 2 mg PO BID Qty: 90 1RF Rx Instructions: administer with breakfast and dinner Sunosi 150 mg tablet 150 mg PO DAILY Qty: 90 1RF citalopram 40 mg tablet 40 mg PO DAILY Qty: 90 0RF gabapentin 600 mg tablet 600 mg PO QHS Qty: 90 0RF Follow-up/Referrals: Naren Borja MD [Primary Care Provider, Family Practice]
== END 2025-07-07 00:44 | disposition home or self-care (01) ==
PROVIDERS: Emergency Provider Physician Assistant; PCP Family Medicine
DX: S63.502A Unspecified sprain of left wrist, initial encounter (principal); E11.628 Type 2 diabetes mellitus with other skin complications; L83 Acanthosis nigricans; R32 Unspecified urinary incontinence; E07.9 Disorder of thyroid, unspecified; G47.30 Sleep apnea, unspecified; M19.90 Unspecified osteoarthritis, unspecified site; F41.9 Anxiety disorder, unspecified; F32.A Depression, unspecified; Z90.49 Acquired absence of other specified parts of digestive tract; W01.0XXA Fall on same level from slipping, tripping and stumbling without subsequent striking against object, initial encounter
CPT/HCPCS: 73110; 99283

== ENCOUNTER 2025-09-09 12:54 | Outpatient (CLI) | payer MEDICARE, SELFPAY ==
--- NOTE | ~2025-09-09 | CT_ITS ---
EXAMINATION:CT diagnostic chest wo con DATE: 09/09/2025 13:22 INDICATION: Lung nodule TECHNIQUE: Computed tomography (CT) of the chest was performed without intravenous contrast. The dose-length product (DLP) was 133.08 mGy-cm. COMPARISON: January 15, 2023 FINDINGS: Scattered subcentimeter radiographically benign stable nodules are seen in both lung khoury. No gross acute intrathoracic process. Heart and great vessels appear stable. Asymmetric fibroglandular soft tissues noted in the breasts with the retroareolar region on the right side almost having a masslike appearance. Diffuse degenerative changes throughout the bony thorax appears stable. No acute process seen in the visualized portions of the upper abdomen. Cholecystectomy clips are noted. IMPRESSION: 1. Radiographically benign lung nodules with no new or suspicious lung nodules. Lung RADS 2. Correlate with follow-up low-dose lung cancer screening chest CT in 12 months. 2. Asymmetric appearance of the breasts soft tissues with masslike appearance in the retroareolar region on the right side. Recommend correlation with diagnostic mammogram for complete evaluation. Reviewed, dictated and finalized at location A. CUTTER IMPRESSION: 1. Radiographically benign lung nodules with no new or suspicious lung nodules. Lung RADS 2. Correlate with follow-up low-dose lung cancer screening chest CT in 12 months. 2. Asymmetric appearance of the breasts soft tissues with masslike appearance i n the retroareolar region on the right side. Recommend correlation with diagnos tic mammogram for complete evaluation.
--- OUTSIDE RECORDS SUMMARY | 2025-09-09 17:05 | XMS_ITS | Encounter Summary ---
Author Organization [facility] Address [address] [place] [address] Care Team Providers Care Mold Maintenance Technician Name Role Phone Naren Borja MD Primary Care Provider [phone] John Alamo MD Unavailable [phone] Encounter Details Date Type Department Care Team (Late st Contact Info) Description 07/24/2024 Ophth Exam [facility] - Ophthalmology [address] [place] [id number] Trev Rogel MD [address] [place] [address] Social History Tobacco Use Types Packs/Day Years [...] medical care, and heating? Somewhat hard 07/27/2024 [facility] of Occupat [facility] - Occupational Stress Questionnaire Answer Date [...] any time in the past 12 [address] [facility], were you homeless or living in a detention (including now)? No 07/27/2024 Comments Unknown Sex and Gender Information Value Date Recorded Sex Assigned at Female 09/05/2024 6:10 PM LAUNDERER HAND Legal Sex Female 4:00 PM CDT Gender Identity Female 09/05/2024 6:10 PM LAUNDERER HAND Sexual Orientation Straight 09/05/2024 6: 10 PM LAUNDERER HAND documented as of this encounter Functional Status * Functional and Cognitive Status Question Answer Date of Assessment Author Is person deaf or have kurt us hearing difficulty? No 07/27/2024 2:07 PM Alexis Turk RN Is person blind or have seri ous difficulty seeing? No 07/27/2024 2:07 PM Alexis Turk RN Does person have serious difficulty walking/climbing stairs? No 07/27/2024 2:07 PM Alexis Turk RN Does person have difficulty dressing/bathing? No 07/27/2024 2:07 PM Alexis Turk RN Does person have difficulty doing errands alone? No 07/27/2024 2:07 PM Diya Turk RN Does person have difficulty concentrating/remembering/making decisions? No 07/27/2024 2:07 PM Alexis Turk RN * Question Answer Date of Assessment Author [...] 07/27/2024 2:06 PM Alexis Turk RN * AUDIT-C Score Answer Date of Assessment Author 0 07/27/2024 2:06 PM Bernie Turk RN documented as of this encounter Plan of Treatment Not on file documented as of this encounter Visit Diagnoses Not on filedocumented in this encounter Care Teams Mold Maintenance Technician Relationship Specialty Start Date End Date Naren Borja MD [address] [place] [id number] PCP - General Family Medicine 07/24/24 [place] [id number] [phone] Ophthalmology 08/26/24 documented as of this encounter
--- OUTSIDE RECORDS SUMMARY | 2025-09-09 17:05 | XMS_ITS | Clinical Summary ---
Author Organization [facility] Address [address] [place] [address] Care Team Providers Care Quality Assurance Supervisor Name Role Phone Naren Borja MD Primary Care Provider [phone] Allergies Active Allergy Reactions Criticality Noted Date [...] 75+ series) 2025 Influenza Adult (#1) 2025 Hepatitis A Vaccines Aged Out No long er eligible based on patient's age to complete this topic Meningococcal B Vaccine Aged Out No l onger eligible based on patient's age to complete this topic Meningococcal Vaccine Aged Out No sammie zoë eligible based on patient's age to complete this topic RSV Immunizations Under 20 Months Aged Out No longer eligible based on patient's age to complete this topic Insurance [place] [address] [place] [id number] [facility] Care Teams Quality Assurance Supervisor Relationship Specialty Start Date End Date Naren Borja MD [address] [place], [place] [phone] PCP - General FAMILY PRACTICE 06/14/23
--- OUTSIDE RECORDS SUMMARY | 2025-09-09 17:05 | XMS_ITS | Encounter Summary ---
Author Organization [facility] Address [address] [place] [address] Care Team Providers Care Wood Turner Name Role Phone Naren Borja MD Primary Care Provider [phone] John Alamo MD Unavailable [phone] Encounter Details Date Type Department Care Team (Late st Contact Info) Description 07/25/2024 Ophth Exam [facility] - Ophthalmology [address] [place] [phone] Maria M Benitez MD [address] [place] [address] Social History Tobacco Use Types Packs/Day Years [...] care, and heating? Somewhat hard 07/27/2024 [facility] [place] of Occupat ional [facility] - Occupational Stress Questionnaire Answer Date [...] any time in the past 12 m [facility], were you homeless or living in a m[facility]p (including now)? No 07/27/2024 Comments Unknown Sex and Gender Information Value Date Recorded Sex Assigned at Female 09/05/2024 6:10 PM HEAD OF STRATEGY Legal Sex Female 4:00 PM CDT Gender Identity Female 09/05/2024 6:10 PM HEAD OF STRATEGY Sexual Orientation Straight 09/05/2024 6: 10 PM HEAD OF STRATEGY documented as of this encounter Functional Status [...] on filedocumented in this encounter Care Teams Wood Turner Relationship Specialty Start Date End Date Naren Borja MD [address] [place] [phone] PCP - General Family Medicine 07/24/24 [place] [id number] [phone] Ophthalmology 08/26/24 documented as of this encounter
--- OUTSIDE RECORDS SUMMARY | 2025-09-09 17:05 | XMS_ITS | CCD ---
Author Name Interface, [id number] Address [address] [place] [address] [facility] Address [address] [place] [address] Reason for Visit Social History Date Name Value 10/14/2018 Sex Female
--- OUTSIDE RECORDS SUMMARY | 2025-09-09 17:05 | XMS_ITS | Clinical Summary ---
Author Organization [facility] Address [address] [place] [address] Care Team Providers Care Employment Clerk Name Role Phone Naren Borja Primary Care Provider [phone] Allergies Active Allergy Reactions Criticality Noted Date [...] drink = 0.6 oz pur e alcohol) [facility] Utilities Answer Date Recorded In the past 12 months has e [employer], gas, oil, or water [employer] threatened to shut off services in your home? No 07/29/2024 Social Connection and Isolation Panel Answer Date Recorded In a typical week, how many times do you talk on the phone with family, friends, or neighbors? Once a week 07/29/2024 How often do you get together with friends or re latives? Once a week 07/29/2024 How often do you attend yazdanism or faith serv ices? Never 07/29/2024 Active Member of [...] care, and heating? Not very hard 07/29/2024 [facility] of Occupat ional Health - Occupational Stress Questionnaire Answer Date Recorded [...] time in the past [address] [facility], were you homeless or living in a m[facility] (including now)? No 07/29/2024 Domestic Abuse Assessment [...] - Reported To Not on file 07/28/2024 SDOH Transportation Source Answer Da te Recorded Has [...] Comments Blood Pressure 146/67 08/05/2024 7:32 AM GERICARE AIDE Pulse 70 08/05/2024 7:32 AM GERICARE AIDE Temperature 36.7 C (98 F) 08/05/2024 7:32 AM GERICARE AIDE Respiratory Rate 16 08/05/2024 7:32 AM GERICARE AIDE Oxygen Saturation 93% 08/05/2024 7:32 AM GERICARE AIDE Inhaled Oxygen Concentration - - Weight 77.1 [...] have received informed consent. Yes Care Teams Employment Clerk Relationship Specialty Start Date End Date Naren Borja [address] [place] [address] [facility] - General 07/29/24
--- OUTSIDE RECORDS SUMMARY | 2025-09-09 17:05 | XMS_ITS | Clinical Summary ---
Author Organization [facility] Address [address] [place] [address] Care Team Providers Care Fisher Dip Net Name Role Phone Naren Borja MD Primary Care Provider [phone] John Alamo MD Unavailable [phone] Source Comments [facility],non-owned Affiliates and Associated Physician Practices is amultiple site organization consisting of ambulatory clinics and hospital sitesin [place], [place], [place] and [place]. This disclosure is being madepursuant to the Care Everywhere program and may not contain all information available regarding this patient. Last updated 18.[facility] Allergies Active Allergy Reactions Criticality Noted Date [...] Used Date Smoking Tobacco: Former Cigarettes 1 31.9 S tarted: 1993 Smokeless Tobacco: Former Tobacco [...] Recorded Patient Health Questionnaire-2 Score 1 01/26/2025 [facility] - Occupational Stress Questionnaire Answer [...] any time in the past 12 m [facility], were you homeless or living in a fdc (including now)? No 07/27/2024 Comments Unknown Sex and Gender Information Value Date Recorded Sex Assigned at Female 09/05/2024 6:10 PM BARLEY STEEPER Legal Sex Female 4:00 PM CDT Gender Identity Female 09/05/2024 6:10 PM BARLEY STEEPER Sexual Orientation Straight 09/05/2024 6: 10 PM BARLEY STEEPER Last Filed Vital Signs Vital Sign Reading Time Taken Comments Blood Pressure 137/82 01/30/2025 8:49 AM CDT Pulse 57 01/30/2025 8:49 AM CDT Temperature 36.9 C (98.4 F) 09/25/2024 6:20 PM BARLEY STEEPER Respiratory Rate 14 09/25/2024 6:50 PM BARLEY STEEPER Oxygen Saturation 97% 01/30/2025 8:49 AM CDT Inhaled Oxygen Concentration - - Weight 73.9 kg (163 lb) 01/30/2025 8:49 AM CDT Height 162.6 cm (5' 4) 09/25/2024 12:06 PM BARLEY STEEPER Body Mass Index 27.98 09/25/2024 12:06 PM BARLEY STEEPER Plan of Treatment Health Maintenance Due Date [...] of 2) 2000 COVID-19 VACCINE ( - 2024-2 6 season) 2025 INFLUENZA VACCINE (#1) 2025 Respiratory [...] this topic Medical Devices Implanted Type Area Ladle Patcher Device Identifier Shelf Expiration Date Model / Serial / Lot Plate Preform Contr Edg Seg Orbt Flr Rt Implanted:Qty: 1 on 09/25/2024 by Humera Gong MD at [facility] Right: [employer] Maxillofacial 812 / / Screw 1.55mm 2.65mm 4mm Slf Abe Cooper Implanted:Qty: 2 on 09/25/2024 by Humera Gong MD at [facility] Right: [employer] Maxillofacial 224 .01 / / Insurance MEDICARE [facility] Advance Directives * Full Code (Latest Code Status on File) Date Activated Date Inactivated Comments 07/28/2024 4:33 PM 08/05/2024 12:05 PM * Full Code Date Activated Date Inactivated Comments 07/24/2024 11:17 PM 07/28/2024 4:27 PM Care Teams Fisher Dip Net Relationship Specialty Start Date End Date Naren Borja MD [address] [place] [phone] PCP - General Family Medicine 07/24/24 [place] [id number] [phone] Ophthalmology 08/26/24
== END 2025-09-09 12:55 | disposition home or self-care (01) ==
PROVIDERS: PCP Family Medicine; Visit Provider Nurse Practitioner Family
DX: R91.1 Solitary pulmonary nodule (principal)
CPT/HCPCS: 71250